=== PATIENT | female | born 1955 | race Caucasian/White ===

== ENCOUNTER 2020-02-10 11:02 | Emergency (ER) | payer MEDICARE, OTHER, SELFPAY ==
--- NOTE | ~2020-02-10 | CT_ITS ---
EXAMINATION: CT abdomen pelvis w con DATE: 02/10/2020 12:00 INDICATION: Postoperative pain following laparoscopic cholecystectomy 4 days prior. TECHNIQUE: Computed tomography (CT) of the abdomen and pelvis was performed with 100 mL Omnipaque-350 intravenous contrast. Automated exposure control and iterative reconstruction technique were employe d. The dose-length product was 565.56 mGy-cm. COMPARISON: None FINDINGS: Mild atelectasis at the bilateral lung bases. Heart size is normal. No pericardial or pleural effusio n. Small sliding-type hiatal hernia. Cholecystectomy clips at the gallbladder fossa. Liver, spleen, p ancreas, bilateral adrenal glands and kidneys are normal. Fluid throughout the large and small bowel consistent with diarrhea. No abnormal bowel wall thickening or obstruction. The appendix is not visua lized. No pericecal inflammatory change to suggest acute appendicitis. Bladder, anteverted uterus and bilateral adnexa are unremarkable. Small amount of perihepatic and pelvic ascites. No abscess or stephanie e intraperitoneal gas. Small fat-containing umbilical hernia. No pathologically enlarged abdominal or pelvic lymphadenopathy. Moderate to severe lower lumbar spondylosis. IMPRESSION: 1. Small amount of perihepatic and pelvic ascites. If there is clinical concern for bile leak would c onsider HIDA scan for further evaluation. 2. Fluid throughout the large and small bowel consistent with diarrhea. 3. Small sliding-type hiatal hernia. Reviewed, dictated and finalized at location A. IMPRESSION: 1. Small amount of perihepatic and pelvic ascites. If there is clinical concern for bile leak would consider HIDA scan for further evaluation. 2. Fluid throughout the large and small bowel consistent with diarrhea. 3. Small sliding-type hiatal hernia.
--- NOTE | ~2020-02-10 | NM_ITS ---
EXAMINATION: NM hepatobiliary wo pharm DATE: 02/10/2020 15:00 INDICATION: Abdominal pain post cholecystectomy COMPARISON: CT dated 02/10/2020 TECHNIQUE: 5.1 mCi Tc-99m mebrofenin (Choletec) was administered intravenously. Scintigraphic images of the abdomen were obtained for one hour. FINDINGS: There is normal clearance of radiotracer from the blood pool. There is homogeneous tracer u ptake by the liver. Activity progresses to the common bile duct and duodenum. There is however concur rent tracking of activity along the caudal margin of the right hepatic lobe accumulating superimposed over the liver consistent with bile leak. On the images obtained at 1560 minutes small amount of act ivity can also be seen tracking inferiorly along the right paracolic gutter. IMPRESSION: 1. Atypical accumulation of activity along the margins of the liver consistent with bile leak. Reviewed, dictated and finalized at location A.
--- NOTE | ~2020-02-10 | XR_ITS ---
EXAMINATION: XR chest 2V EXAM DATE: 02/10/2020 12:26 INDICATION: Abdominal pain. TECHNIQUE: Frontal and lateral projections of the chest obtained and reviewed. There is no prior carli dy for comparison. FINDINGS: Bibasilar subsegmental atelectasis. The lungs are otherwise clear. There are no pleural e ffusions. The cardiomediastinal silhouette is within normal limits. There is no pneumothorax suspec jeremy. The bones and soft tissues are unremarkable. There are cholecystectomy clips. IMPRESSION: Bibasilar subsegmental atelectasis. Reviewed, dictated and finalized at location B.
[2020-02-10 11:04] VITALS: BP 181/107; PULSE 90; RESP 16; TEMP 37.2; O2SAT 96
--- NOTE | 2020-02-10 11:19 | ED.GENADULT ---
HPI - General Adult General Chief complaint: Abdominal Pain <CECY Singleton - Last Filed: 02/10/20 17:57> Stated complaint: ABD PAIN S/P LAP ANTONIO <CECY Singleton - Last Filed: 02/10/20 17:57> Time Seen by Provider: 02/10/20 11:18 <CECY Singleton - Last Filed: 02/10/20 17:57> Source: patient <CECY Singleton - Last Filed: 02/10/20 17:57> Mode of arrival: ambulatory <CECY Singleton - Last Filed: 02/10/20 17:57> Limitations: no limitations <CECY Singleton - Last Filed: 02/10/20 17:57> History of Present Illness HPI narrative: 64-year-old female patient presents to the emergency department with complaints of epigastric pain. Patient states she had an emergency lap antonio done about 4 5 days ago at [facility]. Patient states that they did keep her overnight and gave her antibiotics due to the inflammation. Patient states she was feeling much better when she was released on Monday. Patient states that she did travel from [facility] to this area to visit some family. Patient states that she started feeling increasing pain yesterday. Patient rates her pain 10 out of 10 and states it actually feels worse than when she went into the emergency department. Patient states that they did not send her home on antibiotics but did send her home on [place] which she has been taking 2 in the morning and 2 in the evening as well as Tylenol. Patient states that her last bowel movement was this morning but was soft and what she considers mushy . Patient does have a history of COPD but quit smoking about 14 years ago. Patient states she does have a little bit of chest pain and some shortness of breath but states that that is not necessarily new. Patient denies any pain in her legs. Patient states that she does feel nauseous but has not thrown up. Patient denies any fevers that she is aware of. <CECY Singleton - Last Filed: 02/10/20 17:57> Related Data Allergies/adverse reactions: Allergies Allergy/AdvReac Type Severity Reaction Status Date / Time Penicillins Allergy Anaphylaxis Verified 02/10/20 11:10 <CECY Singleton - Last Filed: 02/10/20 17:57> Review of Systems Review of Systems: Narrative: CONSTITUTIONAL: Denies fever, chills, positive sweats. EYES: Denies visual changes, redness, or discharge. ENT: Denies rhinorrhea, congestion, sore throat, or otalgia. CARDIOVASCULAR: Positive chest pain, denies palpitations, or edema. RESPIRATORY: Denies cough, positive dyspnea. GASTROINTESTINAL: Positive epigastric/abdominal pain, nausea, denies vomiting, positive diarrhea. GENITOURINARY: Denies dysuria or hematuria. SKIN: Denies rash or itching. MUSCULOSKELETAL: Denies back pain, joint pain, or myalgia. NEUROLOGIC: Denies headache, numbness, or weakness. PSYCHIATRIC: Denies anxiety or depression. <CECY Singleton - Last Filed: 02/10/20 17:57> PMFSH Comments At the time of my signature I agree with nursing past medical history, surgical, social, and family history. There is no relevant family history pertinent to the presenting complaint. <CECY Singleton - Last Filed: 02/10/20 17:57> Exam Narrative: Exam Narrative: GENERAL: ill-appearing, well-nourished, and in no acute distress. Patient does appear diaphoretic HEAD: Normocephalic, atraumatic. EYES: PERRLA and EOMI. ENT: Nares clear, no rhinorrhea or epistaxis. Mucous membranes moist. NECK: Supple. No lymphadenopathy CHEST: Patient does have shallow breathing and some decreased lung sounds noted to bilateral upper and lower lobes on auscultation. No respiratory distress. Patient able talk in clear complete sentences. No tripoding noted. HEART: Regular rate and rhythm. No murmur heard. Normal peripheral pulses. ABDOMEN: Soft, slightly distended. guarding, no rebound tenderness, or rigid. No pulsatilla masses. Hypoactive bowel sounds present in all four quadrants. No organomegaly. N
[2020-02-10 11:21] LABS: Basophils Percent Auto 0.3 % (0.2-1.2); Eosinophils Percent Auto 0.1 % (0-4.4); Hematocrit 48.4 % (37.0-47.0); Hemoglobin 16.2 g/dL (12.0-15.0); Immature Granulocyte Absolute 0.06 K/mm3 (0.00-0.031); Immature Granulocyte Percent A 0.4 % (0-0.5); Lymphocytes Absolute Auto 1.06 K/mm3 (0.9-3.2); Lymphocytes Percent Auto 7.2 % (18.3-44.2); Mean Corpuscular HGB Conc 33.5 g/dl (32-36); Mean Corpuscular Hemoglobin 32.5 pg (26-34); Mean Corpuscular Volume 97.2 fl (80-100); Mean Platelet Volume 9.2 fl (7.4-10.4); Monocytes Absolute Auto 1.1 K/mm3 (0.1-0.6); Monocytes Percent Auto 7.6 % (2.6-8.5); Neutrophils Absolute Auto 12.4 K/mm3 (1.3-6.7); Neutrophils Percent Auto 84.4 % (45.5-73.1); Platelet Count Result 285 k/mm3 (150-375); Red Blood Count 4.98 M/mm3 (4.2-5.4); Red Cell Distribution Width 12.8 % (11.5-14.5); White Blood Count 14.7 K/mm3 (4.5-10.0)
--- NOTE | 2020-02-10 11:28 | ECG_ITS ---
Measurements Intervals [place] Rate: 101 P: 72 KS: 138 QRS: -8 QRSD: 97 T: 52 QT: 321 QTc: 416 Interpretive Statements SINUS TACHYCARDIA DELAYED PRECORDIAL R/S TRANSITION BASELINE ARTIFACT- II, III, AVL, AVF, V5-V6 ABNORMAL ECG Electronically Signed On 02-10-2020 14:45:08 CDT by Steven Hawkins D.O.
[2020-02-10 11:34] LABS: Alanine Aminotransferase 125 U/L (4-35); Albumin Level 4.9 g/dL (3.5-5.1); Alkaline Phosphatase 92 U/L (38-126); Aspartate Amino Transferase 112 U/L (14-36); Bilirubin,Total 1.5 mg/dL (0.2-1.3); Blood Urea Nitrogen 11 mg/dL (7-17); Calcium 8.4 mg/dL (8.4-10.2); Carbon Dioxide 29 mmol/L (22-30); Chloride 101 mmol/L (98-107); Estimated CRCL calculation 56 ml/min; Estimated Glomerular Filt Rate > 60; Glucose 144 mg/dL (65-105); Lipase 22 U/L (23-300); Potassium 4.1 mmol/L (3.4-5.0); Sodium 136 mmol/L (137-145)
[2020-02-10] MEDS: FAMOTIDINE 20 MG/2 ML VIAL IV PUSH (11:47)
[2020-02-10] MEDS: PROMETHAZINE HCL 25 MG/ML AMPUL 12.5 MG IV PUSH ×4 (11:47→23:59)
[2020-02-10] MEDS: SODIUM CHLORIDE 0.9% IV 1,000 ML 999 ML IV CONT ×2 (11:56→16:12)
[2020-02-10 12:14] LABS: D Dimer 1.82 ug/mL (<0.48)
[2020-02-10 12:18] LABS: Troponin I < 0.012 ng/mL (0.000-0.034)
[2020-02-10 12:27] LABS: Lactic Acid Reflex 1.3 mmol/L (0.7-2.1)
[2020-02-10 12:58] LABS: Add Urine Microscopic? YES; Appearance Urine Clear (Clear); Bilirubin Urine Negative (Negative); Blood Urine 1+ (Negative); Color Urine Yellow (Yellow); Glucose Urine UA Negative (Negative); Ketones Urine Negative (Negative); Leukocyte Esterase Ur Negative LEU/UL (Negative); Mucus Urine Rare /lpf; Nitrate Urine Negative (Negative); Protein Urine Negative (Negative); Squamous Epithelial Cell Urine Many /hpf (Few); Urobilinogen Urine Negative mg/dL (<2.0); WBC Urine 0-3 /hpf
[2020-02-10 13:01] LABS: Specific Grav Ur > 1.060 (1.001-1.035)
[2020-02-10] MEDS: MORPHINE SULFATE 4 MG/ML INJ IV PUSH (15:00)
[2020-02-10 15:01] VITALS: BP 192/96; PULSE 91; RESP 16
[2020-02-10 16:20] VITALS: BP 175/96; PULSE 85; RESP 16
[2020-02-10 19:26] VITALS: BP 158/89; PULSE 96; RESP 16; TEMP 37.5
--- NOTE | 2020-02-10 20:19 | PC.NURSE ---
Addendum entered by Gely Cardenas 02/11/20 00:31: Spoke with [facility] to check status on beds. No beds available tonight. Hopefully day shift will have discharges. Original Note: Spoke with Lisandro at [facility], no beds available at this time. It probably won't be until morning.
[2020-02-10 20:24] VITALS: BP 168/88; PULSE 99; RESP 20; O2SAT 96
--- NOTE | 2020-02-10 21:13 | PC.NURSE ---
pt extremily upset, [facility] charge nurse called to bedside, pt c/o extended wait in ER. son upset pt just sitting in room with nothing being done. RN explainedexplained process and waiting on [facility] to provide room, pt and son stated that its not acceptable to wait this long, wanted charge nurse to call [facility] to get bed now. pt given pain meds per order, pt c/o that orders were in computer to give every hour, Jennifer MENDEZ explained that computer would not let her place order for continuos meds. 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 son wants and PA aware of [facility] called to get room, or admit to [facility] to get mother out of ER and to surgery. MD and PA aware of pts and sons requests.
--- NOTE | 2020-02-10 21:41 | PC.NURSE ---
went into room to ask pt if she felt better on hosp bed, pt stated she didnt know, son at bedside, pt stated that she heard there was something on table about dr bee doing surg on pt tomm. i stated that Jennifer MENDEZ had expressed to pt that Dr. Bee stated he could do stent tomm. pt now wants Jennifer MENDEZ to hold hosp bed request at [facility] and to call Dr. Bee back to sched procedure her to see which facility she is placed at first. inform Elsa charge nurse of pts request along with PA. pt asked Rn if he knew if Dr. Bee was in surg tomm or had office time. RN staed he didnt know and would have to ask, pt stated Ishould have known not to ask you. RN expressed pts behavior towards RN and unobtainable pt expectations.
[2020-02-11] MEDS: SODIUM CHLORIDE 0.9% IV 1,000 ML 150 ML IV CONT
[2020-02-11 00:12] VITALS: BP 132/86; PULSE 86; RESP 16; O2SAT 96
[2020-02-11 04:58] VITALS: BP 143/90; PULSE 94; RESP 18; TEMP 37.6; O2SAT 96
--- NOTE | 2020-02-11 04:58 | PC.NURSE ---
pt remains unhappy with hosp procedures, asking to be transferred now, does not accept that [facility] has not given a room yet, pt c/o increasing pain, MD notified, pain meds given. pt very short with staff, when asked what pt mumbled pt loudy stated, nevermind, Igot it. . vitals taken, RN left room with pt lying on bed, no distress noted.
--- NOTE | 2020-02-11 05:14 | PC.NURSE ---
Please call pt son Lloyd Rhoades when pt is transferred. [phone]
--- NOTE | 2020-02-11 05:14 | PC.NURSE ---
update given to [facility], Angela stated no bed tonight but will be working on one for today.
--- NOTE | 2020-02-11 05:46 | PC.NURSE ---
pt c/o of IV leaking, RN noticed a sm amout of blood around tegaderm, pt wanted IV removed. IV discontinued with cath tip in place.
--- NOTE | 2020-02-11 05:48 | PC.NURSE ---
pt asking to see Dr. Flores, pt states she was to by PA that her procedure was at this mornig, pt told by RN that he was told GI doctor at declined pt and she was still being transferred to [facility]. RN told pt that he just got done talking to [facility] and pt responded Sure you did, pt assured that [facility] was just given update and would be transferred as soon as possible. pt told RN would have Dr. Flores come talk to her as soon as poss.
[2020-02-11] MEDS: PROMETHAZINE HCL 25 MG/ML AMPUL 12.5 MG IV PUSH ×5 (06:23→15:55)
[2020-02-11 07:15] VITALS: BP 141/83; PULSE 83; RESP 18; O2SAT 100
--- NOTE | 2020-02-11 07:20 | PC.NURSE ---
ASSUMED PT CARE AT THIS TIME, PT AWAITING ROOM AT [facility], PT VERBALIZES UNDERSTANDING OF CARE PLAN, WILL CONTINUE TO MONITOR.
--- NOTE | 2020-02-11 08:19 | PC.NURSE ---
SPOKE WITH PT WHO HAS REFUSED PRN FENTANYL AT THIS TIME, PT INFORMED PER KALIN PERSAUD THAT SHE CAN HAVE [facility] AGAIN AT 0923, PT STATES THAT SHE WOULD LIKE HER PRN FENTANYL DOSE AT THE SAME TIME THE PHENERGAN.
--- NOTE | 2020-02-11 09:29 | PC.NURSE ---
called [facility]. about bed status, 925, they are still waing for discharges, will call us when bed is available
[2020-02-11 09:40] VITALS: BP 137/78; PULSE 75; RESP 18; O2SAT 100
--- NOTE | 2020-02-11 10:05 | PC.NURSE ---
SPOKE WITH PT ABOUT PAIN LEVEL, PT STATES THAT PAIN IS RATING 2/10 NOW AFTER BEING MEDICATED PER PROVIDER ORDER. PT STATES THAT SHE HAS CALLED THE CLARIFYING PLANT OPERATOR AT THIS FACILITY AND STATES THAT HE WILL BE RIGHT DOWN AND WE WILL BE COORDINATING THIS UNTIL WE GET SOMETHING FIGURED OUT BECAUSE THIS IS RIDICULOUS. I INFORMED PT THAT WE HAVE AGAIN CONTACTED [facility] ABOUT A BED AND THEIR RESPONSE WAS THAT THEY ARE STILL AWAITING D/C'S TO ADMIT PT. OT UNHAPPY WITH THIS RESPONSE AND STATES WELL HOW ABOUT [facility] JUST HIRE MORE NURSES TO STAFF THE BEDS THAT THEY DO HAVE, BECAUSE THIS IS RIDICULOUS. I INFORMED PT THAT WE ARE DOING EVERYTHING THAT WE CAN, CARE COORDINATION DID ARRIVE AT BEDSIDE WHEN I WAS IN ROOM. PT HAS CALL LIGHT AT BEDSIDE, BED RAILS UP X2 ON TOP, VSS.
--- NOTE | 2020-02-11 10:33 | PCCCNOTE ---
Spoke with pt. Pt unhappy that progress not being made regarding transfer to [place] or having surgery here. I listened to pt concerns. I informed pt that we cannot make [facility] move any quicker; we do not have any authority over [place] bed assignments. I also informed pt that the surgeons here would not take case.
--- NOTE | 2020-02-11 11:15 | PC.NURSE ---
PT BEDSIDE REPORT GIVEN TO YOVANY KAMARA AT THIS TIME, PT STILL UPSET, STATES THAT SHE HAS HER CONECTIONS WORKING TO GET A NURSE AND A BED AVAILABLE AT [facility]. REQUESTING MORE FENTANYL FOR INCREASING PAIN LEVEL. YOVANY KAMARA AWARE, SHE HAS ASSUMED PT CARE AT THIS TIME.
[2020-02-11] MEDS: SACCHAROMYCES BOULARDII 250 MG CAPSULE PO (13:54)
[2020-02-11] MEDS: DEXTROSE 5%/0.45% SOD CHL 1,000 ML 100 ML IV CONT (13:54)
[2020-02-11 14:04] VITALS: BP 123/84; PULSE 89; RESP 20; O2SAT 97
[2020-02-11 15:46] VITALS: RESP 20; O2SAT 99
== END 2020-02-11 16:30 | disposition short-term general hospital (02) ==
PROVIDERS: Nurse Practitioner Family; Emergency Provider Emergency Medicine
DX: K91.89 Other postprocedural complications and disorders of digestive system (principal); J44.9 Chronic obstructive pulmonary disease, unspecified; Z87.891 Personal history of nicotine dependence; R00.0 Tachycardia, unspecified; R94.31 Abnormal electrocardiogram [ECG] [EKG]; K44.9 Diaphragmatic hernia without obstruction or gangrene; R91.8 Other nonspecific abnormal finding of lung field
CPT/HCPCS: 36415; 71046; 74177; 78226; 80053; 81001; 81025; 83605; 83690; 84484; 85025; 85380; 93005; 96361; 96365; 96366; 96367; 96375; 96376; 99285; A9270; A9537; J0131; J1956; J2270; J2550; J3010; J7030; Q9967